=== PATIENT | female | born 1955 | race Caucasian/White ===

== ENCOUNTER 2017-10-09 20:13 | Emergency (ER) | payer MEDICAID, OTHER ==
[~2017-10-09] VITALS: Ht 162.6 cm; Wt 52.0 kg
[2017-10-09] MEDS ORDERED: CEPH500C5 PO (22:34)
[2017-10-09] MEDS ORDERED: SULF1TAB49 PO (22:34)
[2017-10-09] MEDS ORDERED: cephalexin 250mg capsule PO ONE (22:35)
[2017-10-09] MEDS ORDERED: sulfamethoxazole/trimethoprim DS (800/160mg) tablet PO ONE (22:35)
[2017-10-09 22:46] VITALS: BP 113/64
== END 2017-10-09 22:46 | disposition home or self-care (01) ==
LOC: ER 20:14
DX: L03.116 Cellulitis of left lower limb (principal); B35.3 Tinea pedis; G89.29 Other chronic pain; F15.10 Other stimulant abuse, uncomplicated; Z98.890 Other specified postprocedural states; Z86.19 Personal history of other infectious and parasitic diseases; Z59.0 Homelessness
CPT/HCPCS: 99284

== ENCOUNTER 2017-10-13 21:34 | Emergency (ER) | payer MEDICAID ==
[~2017-10-13] VITALS: Ht 162.6 cm; Wt 52.0 kg
[~2017-10-13 21:34] MED LIST: CEPH500C5 PO; SULF1TAB49 PO
[2017-10-13 22:47] VITALS: BP 110/68
[2017-10-13 22:50] LABS: BASOPHILS % (AUTO) 0.7 % (0-1); EOSINOPHILS # (AUTO) 0.2 X10'3 (0-0.9); EOSINOPHILS % (AUTO) 3.6 % (0-6); HEMATOCRIT 30.3 % (35.0-45.0); HEMOGLOBIN 10.2 g/dl (12.0-16.0); LYMPHOCYTES % (AUTO) 39.7 % (21-51); MEAN CORPUSCULAR HEMOGLOBIN 27.8 PG (27.0-31.0); MEAN CORPUSCULAR HGB CONC 33.7 % (33.0-36.5); MEAN CORPUSCULAR VOLUME 82.7 FL (78-98); MEAN PLATELET VOLUME 7.7 FL (7.4-10.4); MONOCYTES # (AUTO) 0.6 X10'3 (0-0.9); MONOCYTES % (AUTO) 12.2 % (2-12); NEUTROPHILS # (AUTO) 2.2 X10'3 (1.8-7.7); NEUTROPHILS % (AUTO) 43.8 % (42-75); PLATELET COUNT 268 X10'3 (140-440); RED BLOOD COUNT 3.66 X10'6 (4.20-5.60); RED CELL DISTRIBUTION WIDTH 27.9 % (11.5-14.5); WHITE BLOOD COUNT 4.9 X10'3 (4.5-11.0)
[2017-10-13 23:09] LABS: ALANINE AMINOTRANSFERASE 40 U/L (12-78); ALBUMIN 3.4 G/DL (3.4-5.0); ALBUMIN/GLOBULIN RATIO 0.8 (1.1-1.5); ALKALINE PHOSPHATASE 82 IU/L (46-116); ANION GAP 8 (8-16); ASPARTATE AMINO TRANSFERASE 31 U/L (10-37); BILIRUBIN,TOTAL 0.2 MG/DL (0.1-1.0); BLOOD UREA NITROGEN 20 MG/DL (7-18); BUN/CREATININE RATIO 15.5 (6.6-38.0); CALCIUM 9.1 MG/DL (8.5-10.1); CHLORIDE 99 MMOL/L (99-107); CREATININE 1.29 MG/DL (0.40-0.90); GLUCOSE 89 MG/DL (70-104); POTASSIUM 4.1 MMOL/L (3.5-5.1); SODIUM 137 MMOL/L (135-145); TOTAL CARBON DIOXIDE 30.2 MMOL/L (24-32); TOTAL PROTEIN 7.9 G/DL (6.4-8.2); TROPONIN I < 0.04 NG/ML (0.0-0.05); eGFR 42 ML/MIN
[2017-10-13] MEDS ORDERED: CLIN300C3 PO (23:20)
[2017-10-13] MEDS ORDERED: METH4TAB81 PO (23:20)
[2017-10-13] MEDS ORDERED: FAMO-128 PO (23:22)
[2017-10-14 00:55] LABS: ANISOCYTOSIS 3+; PLATELET ESTIMATE NORMAL
[2017-10-14 00:57] LABS: ELLIPTOCYTES FEW; HYPOCHROMASIA 1+; POLYCHROMASIA FEW
== END 2017-10-13 23:35 | disposition home or self-care (01) ==
LOC: ER 21:34
DX: L25.9 Unspecified contact dermatitis, unspecified cause (principal); L03.116 Cellulitis of left lower limb; F17.200 Nicotine dependence, unspecified, uncomplicated; F15.10 Other stimulant abuse, uncomplicated; F11.10 Opioid abuse, uncomplicated; Z86.19 Personal history of other infectious and parasitic diseases; Z60.2 Problems related to living alone; Z59.0 Homelessness; Z98.890 Other specified postprocedural states
CPT/HCPCS: 36415; 71045; 80053; 83605; 84484; 85025; 87040; 93005; 99285

== ENCOUNTER 2017-10-22 10:48 | Emergency (ER) | payer MEDICAID ==
[~2017-10-22] VITALS: Ht 162.6 cm; Wt 49.5 kg
[~2017-10-22 10:48] MED LIST changes: +CLIN300C3 PO; +FAMO-128 PO; +METH4TAB81 PO; -SULF1TAB49 PO
[2017-10-22] MEDS ORDERED: ondansetron 4mg rapidly disintigrating tab PO ONE (11:15)
[2017-10-22] MEDS ORDERED: HYDROcodone/acetaminophen 10/325mg tab PO ONE (11:15)
[2017-10-22 11:19] VITALS: BP 147/78
[2017-10-22] MEDS ORDERED: ibuprofen tablet 400 MG TABLET PO ONE (12:30)
[2017-10-22] MEDS ORDERED: ONDA4TAB9 PO (13:58)
== END 2017-10-22 15:00 | disposition home or self-care (01) ==
LOC: ER 10:48
DX: M25.552 Pain in left hip (principal); F11.23 Opioid dependence with withdrawal; G89.29 Other chronic pain; F15.10 Other stimulant abuse, uncomplicated; Z98.890 Other specified postprocedural states; Z79.899 Other long term (current) drug therapy; Z59.0 Homelessness; Z88.1 Allergy status to other antibiotic agents; Z88.8 Allergy status to other drugs, medicaments and biological substances; W19.XXXA Unspecified fall, initial encounter; Y93.89 Activity, other specified; Y92.89 Other specified places as the place of occurrence of the external cause; Y99.9 Unspecified external cause status
CPT/HCPCS: 73502; 99284

== ENCOUNTER 2017-11-15 15:38 | Emergency (ER) | payer MEDICAID ==
[~2017-11-15] VITALS: Ht 165.1 cm; Wt 45.5 kg
[~2017-11-15 15:38] MED LIST changes: -CLIN300C3 PO; +ONDA4TAB9 PO
[2017-11-15] MEDS ORDERED: NAPR-56 PO (15:51)
[2017-11-15] MEDS ORDERED: ONDA4TAB9 PO (15:51)
[2017-11-15] MEDS ORDERED: buprenorphine/naloxone 2-0.5mg sublingual tablet SL SCH (16:30)
[2017-11-15] MEDS ORDERED: buprenorphine/naloxone 2-0.5mg sublingual tablet SL ONE (18:50)
[2017-11-15 19:56] VITALS: BP 109/60
[2017-11-16] MEDS ORDERED: buprenorphine/naloxone 2-0.5mg sublingual tablet SL SCH (08:00)
[2017-11-16] MEDS ORDERED: buprenorphine/naloxone 2-0.5mg sublingual tablet SL ONE (08:00)
[2017-11-16 13:20] LABS: C DIFF ANTIGEN SEE COMMENTS (NEGATIVE); C DIFF SPECIMEN=DIARRHEA? ACCEPTABLE; C DIFF TOXIN (LAMP) NEGATIVE (NEG); C DIFFICILE TOXINS A&B NEGATIVE (Neg)
== END 2017-11-15 19:57 | disposition home or self-care (01) ==
LOC: ER 15:38
DX: M25.552 Pain in left hip (principal); F11.23 Opioid dependence with withdrawal; G89.29 Other chronic pain; F15.10 Other stimulant abuse, uncomplicated; Z86.19 Personal history of other infectious and parasitic diseases; Z60.2 Problems related to living alone; Z98.890 Other specified postprocedural states; Z88.2 Allergy status to sulfonamides; Z88.8 Allergy status to other drugs, medicaments and biological substances; Z79.899 Other long term (current) drug therapy
CPT/HCPCS: 72170; 87324; 87449; 87493; 99285

== ENCOUNTER 2018-01-23 13:40 | Inpatient (IN) | payer MEDICAID ==
[~2018-01-23] VITALS: Ht 162.6 cm; Wt 55.4 kg
[~2018-01-23 13:40] MED LIST changes: -ONDA4TAB9 PO
[2018-01-23] MEDS ORDERED: piperacillin/tazo 3.375gm/50ml 50 ML IV ONE (16:40)
[2018-01-23] MEDS ORDERED: vancomycin/NS 1 GM ADD-VANTAGE 250 ML IV ONE (16:40)
[2018-01-23 20:41] LABS: BASOPHILS % (AUTO) 0.4 % (0-1); EOSINOPHILS # (AUTO) 0.1 X10'3 (0-0.9); EOSINOPHILS % (AUTO) 0.9 % (0-6); HEMATOCRIT 26.1 % (35.0-45.0); HEMOGLOBIN 8.9 g/dl (12.0-16.0); LYMPHOCYTES # (AUTO) 2.7 X10'3 (1.1-4.8); LYMPHOCYTES % (AUTO) 30.6 % (21-51); MEAN CORPUSCULAR HEMOGLOBIN 31.7 PG (27.0-31.0); MEAN CORPUSCULAR HGB CONC 34.2 % (33.0-36.5); MEAN CORPUSCULAR VOLUME 92.8 FL (78-98); MEAN PLATELET VOLUME 7.4 FL (7.4-10.4); MONOCYTES # (AUTO) 1.3 X10'3 (0-0.9); MONOCYTES % (AUTO) 14.3 % (2-12); NEUTROPHILS # (AUTO) 4.8 X10'3 (1.8-7.7); NEUTROPHILS % (AUTO) 53.8 % (42-75); PLATELET COUNT 329 X10'3 (140-440); RED BLOOD COUNT 2.81 X10'6 (4.20-5.60); WHITE BLOOD COUNT 8.9 X10'3 (4.5-11.0)
[2018-01-23 20:55] LABS: ALANINE AMINOTRANSFERASE 58 U/L (12-78); ALBUMIN 2.6 G/DL (3.4-5.0); ALBUMIN/GLOBULIN RATIO 0.7 (1.1-1.5); ALKALINE PHOSPHATASE 58 IU/L (46-116); ANION GAP 7 (8-16); ASPARTATE AMINO TRANSFERASE 46 U/L (10-37); BILIRUBIN,TOTAL 0.4 MG/DL (0.1-1.0); BLOOD UREA NITROGEN 16 MG/DL (7-18); BUN/CREATININE RATIO 14.8 (6.6-38.0); CALCIUM 9.1 MG/DL (8.5-10.1); CHLORIDE 101 MMOL/L (99-107); CREATININE 1.08 MG/DL (0.40-0.90); GLUCOSE 98 MG/DL (70-104); POTASSIUM 3.9 MMOL/L (3.5-5.1); SODIUM 137 MMOL/L (135-145); TOTAL CARBON DIOXIDE 29.3 MMOL/L (24-32); TOTAL PROTEIN 6.4 G/DL (6.4-8.2); eGFR 52 ML/MIN
[2018-01-23] MEDS ORDERED: temazepam 15mg capsule PO PRN (21:00)
[2018-01-23 21:03] LABS: ETHANOL < 0.010 GM/DL (0.0-0.010); MAGNESIUM 1.4 MG/DL (1.5-2.4)
[2018-01-23] MEDS ORDERED: TRAZ-146 PO (21:03)
[2018-01-23] MEDS ORDERED: PHE12.5T PO (21:38)
[2018-01-23] MEDS ORDERED: PARO40TA PO (21:38)
[2018-01-23] MEDS ORDERED: BUPR1FIL5 SL (21:38)
[2018-01-23] MEDS ORDERED: morphine 4 MG/ML inj SYRINge IV STA (21:40)
[2018-01-23] MEDS ORDERED: LORazepam 2 mg/ml vial IV STA (21:40)
[2018-01-23] MEDS ORDERED: ondansetron/PF 4mg/2ml inj IV STA (21:40)
[2018-01-23] MEDS ORDERED: HYDROcodone/acetaminophen 5mg/325mg tablet PO PRN (23:50)
[2018-01-23] MEDS ORDERED: morphine 4 MG/ML inj SYRINge IV PRN ×2 (23:50)
[2018-01-23] MEDS ORDERED: acetaminophen 325mg tablet PO PRN ×2 (23:50)
[2018-01-23] MEDS ORDERED: diphenhydrAMINE 25mg capsule PO PRN (23:50)
[2018-01-23] MEDS ORDERED: diphenhydrAMINE 50 mg/ml inj IV PRN (23:50)
[2018-01-23] MEDS ORDERED: HYDROmorphone inj. 0.5 MG/0.5 ML DISP.SYRIN IV PRN ×2 (23:50)
[2018-01-23] MEDS ORDERED: acetaminophen 650mg rectal suppository RC PRN (23:50)
[2018-01-23] MEDS ORDERED: mag hydrox/Alum hydrox/simeth 30ml oral suspension PO PRN (23:50)
[2018-01-23] MEDS ORDERED: magnesium hydroxide 30ml (MOM) UD suspension PO PRN (23:50)
[2018-01-23] MEDS ORDERED: bisacodyl 10mg suppository rectal RC PRN (23:50)
[2018-01-23] MEDS ORDERED: HYDROcodone/acetaminophen 10/325mg tab PO PRN (23:50)
[2018-01-23] MEDS ORDERED: ondansetron/PF 4mg/2ml inj IV PRN (23:50)
[2018-01-23] MEDS ORDERED: metoclopramide 5 mg/ml inj IV PRN (23:50)
[2018-01-23] MEDS ORDERED: magnesium 1gm/100ml D5W IVPB 100 ML IV PRN (23:55)
[2018-01-23] MEDS ORDERED: magnesium 4gm in 100ml NS 100 ML IV PRN (23:55)
[2018-01-24] MEDS: normal saline 1000ml 1,000 ML IV SCH ×4 (00:36→22:56)
[2018-01-24 00:45] VITALS: BP 101/47
[2018-01-24 05:02] LABS: BASOPHILS # (AUTO) 0.1 X10'3 (0-0.2); BASOPHILS % (AUTO) 1.1 % (0-1); EOSINOPHILS % (AUTO) 0.7 % (0-6); HEMATOCRIT 23.2 % (35.0-45.0); HEMOGLOBIN 7.8 g/dl (12.0-16.0); LYMPHOCYTES # (AUTO) 1.7 X10'3 (1.1-4.8); LYMPHOCYTES % (AUTO) 27.8 % (21-51); MEAN CORPUSCULAR HEMOGLOBIN 31.5 PG (27.0-31.0); MEAN CORPUSCULAR HGB CONC 33.6 % (33.0-36.5); MEAN CORPUSCULAR VOLUME 93.9 FL (78-98); MEAN PLATELET VOLUME 7.8 FL (7.4-10.4); NEUTROPHILS # (AUTO) 3.4 X10'3 (1.8-7.7); NEUTROPHILS % (AUTO) 54.4 % (42-75); PLATELET COUNT 263 X10'3 (140-440); RED BLOOD COUNT 2.47 X10'6 (4.20-5.60); WHITE BLOOD COUNT 6.2 X10'3 (4.5-11.0)
[2018-01-24] MEDS ORDERED: piperacillin/tazo 4.5gm/100ml 100 ML IV SCH (06:00)
[2018-01-24 07:06] VITALS: BP 93/61
[2018-01-24] MEDS: famotidine 20mg tablet PO SCH ×2 (07:38→19:15)
[2018-01-24] MEDS: proMETHazine 25mg tablet PO SCH ×3 (07:38→19:07)
[2018-01-24] MEDS: pantoprazole 40mg Tablet.DR PO SCH (07:39)
[2018-01-24] MEDS: docusate sod 100mg capsule PO SCH ×2 (07:39→19:15)
[2018-01-24] MEDS: PARoxetine 20mg tablet PO SCH (07:39)
[2018-01-24] MEDS: buprenorphine/naloxone 2-0.5mg sublingual tablet SL SCH ×2 (07:51→19:16)
[2018-01-24 07:59] LABS: ALANINE AMINOTRANSFERASE 49 U/L (12-78); ALBUMIN 2.2 G/DL (3.4-5.0); ALBUMIN/GLOBULIN RATIO 0.7 (1.1-1.5); ALKALINE PHOSPHATASE 48 IU/L (46-116); ANION GAP 8 (8-16); ASPARTATE AMINO TRANSFERASE 47 U/L (10-37); BILIRUBIN,TOTAL 0.5 MG/DL (0.1-1.0); BLOOD UREA NITROGEN 13 MG/DL (7-18); BUN/CREATININE RATIO 11.2 (6.6-38.0); CALCIUM 8.4 MG/DL (8.5-10.1); CHLORIDE 105 MMOL/L (99-107); CREATINE KINASE 431 U/L (26-192); CREATININE 1.16 MG/DL (0.40-0.90); GLUCOSE 85 MG/DL (70-104); LIPASE 71 U/L (73-393); MAGNESIUM 1.3 MG/DL (1.5-2.4); PHOSPHORUS 3.7 MG/DL (2.3-4.5); POTASSIUM 3.7 MMOL/L (3.5-5.1); SODIUM 139 MMOL/L (135-145); TOTAL CARBON DIOXIDE 25.7 MMOL/L (24-32); TOTAL PROTEIN 5.5 G/DL (6.4-8.2); eGFR 48 ML/MIN
[2018-01-24] MEDS ORDERED: [UNRECOGNIZED DRUG - OTHER] SL SCH (08:00)
[2018-01-24] MEDS ORDERED: NALOXONE SL SCH (08:00)
[2018-01-24] MEDS ORDERED: BUPRENORPHINE SL SCH (08:00)
[2018-01-24] MEDS: cefepime 1GM/NS ADD-VANTAGE 100 ML IV SCH ×3 (08:38→23:29)
[2018-01-24] MEDS ORDERED: vancomycin/NS 1 GM ADD-VANTAGE 250 ML IV SCH (09:00)
[2018-01-24 10:37] LABS: URINE AMPHETAMINE SCREEN NEGATIVE (Neg); URINE BARBITUATE SCREEN NEGATIVE (Neg); URINE BENZODIAZEPINES SCREEN NEGATIVE (Neg); URINE CANNABINOID SCREEN NEGATIVE (Neg); URINE COCAINE SCREEN NEGATIVE (Neg); URINE METHADONE SCREEN NEGATIVE (Neg); URINE OPIATE SCREEN POSITIVE (Neg); URINE PHENCYCLIDINE SCREEN NEGATIVE (Neg)
[2018-01-24 11:44] VITALS: BP 90/52
[2018-01-24] MEDS: magnesium Cl slow-release 64mg tablet PO PRN ×2 (13:24→23:27)
[2018-01-24 19:00] VITALS: BP 115/58
[2018-01-24] MEDS: lactobacillus rhamnosus 10,000 MMU CELLS/CAPSULE PO SCH (19:15)
[2018-01-24] MEDS: traZODone 50mg tablet PO SCH (21:00)
[2018-01-24 23:00] VITALS: BP 115/53
[2018-01-24 23:40] VITALS: BP 102/49
[2018-01-25] MEDS: methylPREDNISolone sod succ 125mg/2ml vial IV SCH ×3 (00:35→19:21)
[2018-01-25] MEDS: proMETHazine 25mg tablet PO SCH ×4 (02:00→19:21)
[2018-01-25] MEDS: ipratropium/albuterol 3ml nebule NEB PRN (02:29)
[2018-01-25 02:30] VITALS: BP 118/58
[2018-01-25 03:45] LABS: BASOPHILS % (AUTO) 0.3 % (0-1); EOSINOPHILS # (AUTO) 0.1 X10'3 (0-0.9); EOSINOPHILS % (AUTO) 1.6 % (0-6); HEMATOCRIT 24.3 % (35.0-45.0); HEMOGLOBIN 8.1 g/dl (12.0-16.0); LYMPHOCYTES # (AUTO) 0.7 X10'3 (1.1-4.8); LYMPHOCYTES % (AUTO) 10.8 % (21-51); MEAN CORPUSCULAR HEMOGLOBIN 31.5 PG (27.0-31.0); MEAN CORPUSCULAR HGB CONC 33.3 % (33.0-36.5); MEAN CORPUSCULAR VOLUME 94.8 FL (78-98); MEAN PLATELET VOLUME 7.3 FL (7.4-10.4); MONOCYTES # (AUTO) 0.3 X10'3 (0-0.9); MONOCYTES % (AUTO) 3.9 % (2-12); NEUTROPHILS # (AUTO) 5.4 X10'3 (1.8-7.7); NEUTROPHILS % (AUTO) 83.4 % (42-75); PLATELET COUNT 272 X10'3 (140-440); RED BLOOD COUNT 2.56 X10'6 (4.20-5.60); RED CELL DISTRIBUTION WIDTH 16.9 % (11.5-14.5); WHITE BLOOD COUNT 6.5 X10'3 (4.5-11.0)
[2018-01-25 04:16] LABS: ALANINE AMINOTRANSFERASE 56 U/L (12-78); ALBUMIN 2.3 G/DL (3.4-5.0); ALBUMIN/GLOBULIN RATIO 0.6 (1.1-1.5); ALKALINE PHOSPHATASE 50 IU/L (46-116); ANION GAP 9 (8-16); ASPARTATE AMINO TRANSFERASE 56 U/L (10-37); BILIRUBIN,TOTAL 0.4 MG/DL (0.1-1.0); BLOOD UREA NITROGEN 15 MG/DL (7-18); BUN/CREATININE RATIO 16.5 (6.6-38.0); CALCIUM 7.8 MG/DL (8.5-10.1); CHLORIDE 108 MMOL/L (99-107); CREATININE 0.91 MG/DL (0.40-0.90); GLUCOSE 109 MG/DL (70-104); POTASSIUM 3.6 MMOL/L (3.5-5.1); SODIUM 141 MMOL/L (135-145); TOTAL CARBON DIOXIDE 24.4 MMOL/L (24-32); eGFR 63 ML/MIN
[2018-01-25 04:40] VITALS: BP 117/61
[2018-01-25] MEDS ORDERED: normal saline 1000ml 1,000 ML IV SCH ×2 (04:50→11:50)
[2018-01-25 07:00] VITALS: BP 115/57
[2018-01-25] MEDS: cefepime 1GM/NS ADD-VANTAGE 100 ML IV SCH ×2 (08:26→15:30)
[2018-01-25] MEDS: lactobacillus rhamnosus 10,000 MMU CELLS/CAPSULE PO SCH ×2 (08:27→19:20)
[2018-01-25] MEDS: famotidine 20mg tablet PO SCH ×2 (08:27→19:21)
[2018-01-25] MEDS: pantoprazole 40mg Tablet.DR PO SCH (08:27)
[2018-01-25] MEDS: PARoxetine 20mg tablet PO SCH (08:27)
[2018-01-25] MEDS: docusate sod 100mg capsule PO SCH ×2 (08:27→19:20)
[2018-01-25] MEDS: buprenorphine/naloxone 2-0.5mg sublingual tablet SL SCH ×2 (08:28→19:20)
[2018-01-25] MEDS ORDERED: furosemide 20 MG/2 ML vial IV ONE (10:15)
[2018-01-25] MEDS ORDERED: heparin sodium, porcine/PF 100unit/ml 5ML syringe IV SCH (10:30)
[2018-01-25] MEDS ORDERED: sod chloride 0.9% 10ml flush syringe IV SCH (10:30)
[2018-01-25] MEDS: vancomycin/NS 1 GM ADD-VANTAGE 250 ML IV SCH (10:56)
[2018-01-25 20:00] VITALS: BP 117/65
[2018-01-25] MEDS: traZODone 50mg tablet PO SCH (21:00)
[2018-01-26] VITALS: BP 119/60
[2018-01-26] MEDS: cefepime 1GM/NS ADD-VANTAGE 100 ML IV SCH ×4 (00:39→23:52)
[2018-01-26] MEDS: proMETHazine 25mg tablet PO SCH ×4 (02:00→21:10)
[2018-01-26 03:30] VITALS: BP 113/68
[2018-01-26] MEDS: ipratropium/albuterol 3ml nebule NEB PRN ×2 (03:49→21:46)
[2018-01-26] MEDS ORDERED: furosemide 20 MG/2 ML vial IV ONE (04:25)
[2018-01-26 05:49] LABS: BASOPHILS % (AUTO) 0.1 % (0-1); EOSINOPHILS # (AUTO) 0.1 X10'3 (0-0.9); EOSINOPHILS % (AUTO) 0.7 % (0-6); HEMATOCRIT 22.9 % (35.0-45.0); HEMOGLOBIN 7.6 g/dl (12.0-16.0); LYMPHOCYTES # (AUTO) 1.1 X10'3 (1.1-4.8); LYMPHOCYTES % (AUTO) 6.8 % (21-51); MEAN CORPUSCULAR HEMOGLOBIN 31.2 PG (27.0-31.0); MEAN CORPUSCULAR HGB CONC 33.2 % (33.0-36.5); MEAN CORPUSCULAR VOLUME 93.9 FL (78-98); MEAN PLATELET VOLUME 7.9 FL (7.4-10.4); MONOCYTES # (AUTO) 0.9 X10'3 (0-0.9); MONOCYTES % (AUTO) 5.5 % (2-12); NEUTROPHILS # (AUTO) 14.1 X10'3 (1.8-7.7); NEUTROPHILS % (AUTO) 86.9 % (42-75); PLATELET COUNT 275 X10'3 (140-440); RED BLOOD COUNT 2.44 X10'6 (4.20-5.60); RED CELL DISTRIBUTION WIDTH 16.8 % (11.5-14.5); WHITE BLOOD COUNT 16.2 X10'3 (4.5-11.0)
[2018-01-26 06:23] LABS: ALANINE AMINOTRANSFERASE 44 U/L (12-78); ALBUMIN 2.3 G/DL (3.4-5.0); ALBUMIN/GLOBULIN RATIO 0.6 (1.1-1.5); ALKALINE PHOSPHATASE 43 IU/L (46-116); ANION GAP 5 (8-16); ASPARTATE AMINO TRANSFERASE 30 U/L (10-37); BILIRUBIN,TOTAL 0.2 MG/DL (0.1-1.0); BLOOD UREA NITROGEN 26 MG/DL (7-18); BUN/CREATININE RATIO 22.4 (6.6-38.0); CALCIUM 7.7 MG/DL (8.5-10.1); CHLORIDE 107 MMOL/L (99-107); CREATININE 1.16 MG/DL (0.40-0.90); GLUCOSE 158 MG/DL (70-104); POTASSIUM 3.1 MMOL/L (3.5-5.1); SODIUM 138 MMOL/L (135-145); eGFR 48 ML/MIN
[2018-01-26 07:00] VITALS: BP 115/54
[2018-01-26] MEDS: pantoprazole 40mg Tablet.DR PO SCH (07:20)
[2018-01-26] MEDS: PARoxetine 20mg tablet PO SCH (07:20)
[2018-01-26] MEDS: lactobacillus rhamnosus 10,000 MMU CELLS/CAPSULE PO SCH ×2 (07:27→21:09)
[2018-01-26] MEDS: buprenorphine/naloxone 2-0.5mg sublingual tablet SL SCH ×2 (07:27→21:12)
[2018-01-26] MEDS: docusate sod 100mg capsule PO SCH ×2 (07:27→21:10)
[2018-01-26] MEDS: famotidine 20mg tablet PO SCH ×2 (07:27→21:11)
[2018-01-26] MEDS: methylPREDNISolone sod succ 125mg/2ml vial IV SCH (07:29)
[2018-01-26 11:00] VITALS: BP 131/73
[2018-01-26] MEDS: vancomycin/NS 1 GM ADD-VANTAGE 250 ML IV SCH (11:54)
[2018-01-26] MEDS ORDERED: potassium Cl 20 mEq SR tablet PO PRN ×3 (16:00→16:10)
[2018-01-26] MEDS ORDERED: magnesium 4gm in 100ml NS 100 ML IV PRN ×2 (16:00→16:10)
[2018-01-26] MEDS ORDERED: magnesium Cl slow-release 64mg tablet PO PRN ×2 (16:00→16:10)
[2018-01-26] MEDS ORDERED: potassium Cl 40MEQ/NS 500ml 500 ML IV PRN ×4 (16:00→16:10)
[2018-01-26] MEDS ORDERED: magnesium 1gm/100ml D5W IVPB 100 ML IV PRN (16:10)
[2018-01-26] MEDS: potassium Cl 20 mEq SR tablet PO PRN ×2 (16:33→22:40)
[2018-01-26 20:00] VITALS: BP 127/68
[2018-01-26] MEDS: traZODone 50mg tablet PO SCH (21:11)
[2018-01-27] VITALS: BP 99/60
[2018-01-27] MEDS: proMETHazine 25mg tablet PO SCH ×4 (02:00→20:16)
[2018-01-27] MEDS: potassium Cl 20 mEq SR tablet PO PRN (03:04)
[2018-01-27] MEDS ORDERED: albuterol 2.5 MG/3 ML nebule NEB STA (05:13)
[2018-01-27 05:25] LABS: ABG BASE EXCESS 0.8 mmol/L (-2.0-3.0); ABG HCO3 25.4 mmol/L (22.0-26.0); ABG OXYGEN SATURATION 90.4 % (95-98); ABG PCO2 (T) 39.2 mmHg (32.0-45.0); ABG PH (T) 7.426 (7.350-7.450); ABG PO2 (T) 61.1 mmHg (83-108); ALLEN'S TEST Positive; FCOHb 0.3 % (0.5-1.5); FLOW 15 L/min; FMetHb 0.3 % (0.3-1.12); FO2Hb 89.9 % (94-100); PATIENT TEMPERATURE 36.5; TOTAL HEMOGLOBIN 8.6 G/dl (12.0-16.0)
[2018-01-27] MEDS: ipratropium/albuterol 3ml nebule NEB PRN (05:27)
[2018-01-27 05:32] LABS: BASOPHILS # (AUTO) 0.1 X10'3 (0-0.2); BASOPHILS % (AUTO) 0.4 % (0-1); EOSINOPHILS % (AUTO) 0 % (0-6); HEMATOCRIT 23.9 % (35.0-45.0); LYMPHOCYTES % (AUTO) 12.9 % (21-51); MEAN CORPUSCULAR HEMOGLOBIN 31.3 PG (27.0-31.0); MEAN CORPUSCULAR HGB CONC 33.7 % (33.0-36.5); MEAN CORPUSCULAR VOLUME 93.2 FL (78-98); MEAN PLATELET VOLUME 7.3 FL (7.4-10.4); MONOCYTES # (AUTO) 0.8 X10'3 (0-0.9); MONOCYTES % (AUTO) 5.6 % (2-12); NEUTROPHILS # (AUTO) 12.4 X10'3 (1.8-7.7); NEUTROPHILS % (AUTO) 81.1 % (42-75); PLATELET COUNT 326 X10'3 (140-440); RED BLOOD COUNT 2.56 X10'6 (4.20-5.60); RED CELL DISTRIBUTION WIDTH 17.5 % (11.5-14.5); WHITE BLOOD COUNT 15.3 X10'3 (4.5-11.0)
[2018-01-27] MEDS ORDERED: furosemide 40mg/4ml inj IV ONE (05:35)
[2018-01-27] MEDS ORDERED: furosemide 40mg/4ml inj ONE (05:36)
[2018-01-27 05:49] LABS: ALANINE AMINOTRANSFERASE 45 U/L (12-78); ALBUMIN 2.3 G/DL (3.4-5.0); ALBUMIN/GLOBULIN RATIO 0.6 (1.1-1.5); ALKALINE PHOSPHATASE 47 IU/L (46-116); ANION GAP 7 (8-16); ASPARTATE AMINO TRANSFERASE 25 U/L (10-37); BILIRUBIN,TOTAL 0.2 MG/DL (0.1-1.0); BLOOD UREA NITROGEN 32 MG/DL (7-18); BUN/CREATININE RATIO 28.8 (6.6-38.0); CALCIUM 7.9 MG/DL (8.5-10.1); CHLORIDE 111 MMOL/L (99-107); CREATININE 1.11 MG/DL (0.40-0.90); GLUCOSE 91 MG/DL (70-104); POTASSIUM 3.7 MMOL/L (3.5-5.1); SODIUM 146 MMOL/L (135-145); TOTAL PROTEIN 6.3 G/DL (6.4-8.2); eGFR 50 ML/MIN
[2018-01-27 05:50] LABS: MAGNESIUM 1.7 MG/DL (1.5-2.4); TROPONIN I 0.07 NG/ML (0.0-0.05)
[2018-01-27] MEDS: docusate sod 100mg capsule PO SCH ×2 (08:54→20:16)
[2018-01-27] MEDS: lactobacillus rhamnosus 10,000 MMU CELLS/CAPSULE PO SCH ×2 (08:54→20:16)
[2018-01-27] MEDS: famotidine 20mg tablet PO SCH ×2 (08:55→20:16)
[2018-01-27] MEDS: buprenorphine/naloxone 2-0.5mg sublingual tablet SL SCH ×2 (08:55→20:15)
[2018-01-27] MEDS: PARoxetine 20mg tablet PO SCH (08:55)
[2018-01-27] MEDS: pantoprazole 40mg Tablet.DR PO SCH (08:59)
[2018-01-27 09:02] VITALS: BP 97/54
[2018-01-27] MEDS ORDERED: VANCOMYCIN LEVEL IV ONE (09:30)
[2018-01-27 10:00] VITALS: BP 105/63
[2018-01-27] MEDS ORDERED: cefpodoxime proxetil 100mg tablet PO SCH (10:10)
[2018-01-27] MEDS ORDERED: furosemide 10 MG/1 ML 10ml inj IV ONE (10:25)
[2018-01-27] MEDS ORDERED: iohexol 350MG/ML 100ml bottle IV ONE (10:31)
[2018-01-27 10:45] LABS: ABG BASE EXCESS 4.3 mmol/L (-2.0-3.0); ABG OXYGEN SATURATION 85.2 % (95-98); ABG PCO2 (T) 38.3 mmHg (32.0-45.0); ABG PH (T) 7.482 (7.350-7.450); ABG PO2 (T) 48.7 mmHg (83-108); ALLEN'S TEST Positive; FCOHb 0.6 % (0.5-1.5); FMetHb 0.3 % (0.3-1.12); FO2Hb 84.4 % (94-100); TOTAL HEMOGLOBIN 8.7 G/dl (12.0-16.0)
[2018-01-27] MEDS: azithromycin 250mg tablet PO SCH (12:29)
[2018-01-27] MEDS: piperacillin/tazo 3.375gm/50ml 50 ML IV SCH ×3 (12:29→20:14)
[2018-01-27 20:00] VITALS: BP 148/84
[2018-01-27] MEDS: furosemide 40mg/4ml inj IV SCH (20:14)
[2018-01-27] MEDS: traZODone 50mg tablet PO SCH (21:00)
[2018-01-28] VITALS: BP 107/71
[2018-01-28] MEDS: proMETHazine 25mg tablet PO SCH ×4 (02:00→20:00)
[2018-01-28] MEDS: piperacillin/tazo 3.375gm/50ml 50 ML IV SCH ×4 (02:09→20:21)
[2018-01-28 05:29] LABS: BASOPHILS % (AUTO) 0.1 % (0-1); EOSINOPHILS # (AUTO) 0.1 X10'3 (0-0.9); EOSINOPHILS % (AUTO) 0.4 % (0-6); HEMATOCRIT 28.8 % (35.0-45.0); HEMOGLOBIN 9.8 g/dl (12.0-16.0); LYMPHOCYTES # (AUTO) 1.7 X10'3 (1.1-4.8); LYMPHOCYTES % (AUTO) 11.3 % (21-51); MEAN CORPUSCULAR HEMOGLOBIN 31.5 PG (27.0-31.0); MEAN CORPUSCULAR HGB CONC 33.9 % (33.0-36.5); MEAN CORPUSCULAR VOLUME 92.8 FL (78-98); MEAN PLATELET VOLUME 7.7 FL (7.4-10.4); NEUTROPHILS % (AUTO) 81.2 % (42-75); PLATELET COUNT 324 X10'3 (140-440); RED CELL DISTRIBUTION WIDTH 16.9 % (11.5-14.5); WHITE BLOOD COUNT 14.8 X10'3 (4.5-11.0)
[2018-01-28 06:29] LABS: ALANINE AMINOTRANSFERASE 36 U/L (12-78); ALBUMIN 2.5 G/DL (3.4-5.0); ALBUMIN/GLOBULIN RATIO 0.5 (1.1-1.5); ALKALINE PHOSPHATASE 58 IU/L (46-116); ANION GAP 5 (8-16); ASPARTATE AMINO TRANSFERASE 22 U/L (10-37); BILIRUBIN,TOTAL 0.7 MG/DL (0.1-1.0); BLOOD UREA NITROGEN 23 MG/DL (7-18); BUN/CREATININE RATIO 21.7 (6.6-38.0); CALCIUM 8.3 MG/DL (8.5-10.1); CHLORIDE 98 MMOL/L (99-107); CREATININE 1.06 MG/DL (0.40-0.90); FERRITIN 71 NG/ML (8-252); GLUCOSE 104 MG/DL (70-104); MAGNESIUM 1.5 MG/DL (1.5-2.4); POTASSIUM 3.2 MMOL/L (3.5-5.1); SODIUM 141 MMOL/L (135-145); TOTAL CARBON DIOXIDE 38.5 MMOL/L (24-32); TOTAL PROTEIN 7.1 G/DL (6.4-8.2); eGFR 53 ML/MIN
[2018-01-28 06:33] LABS: % IRON SATURATION 3 % (11-46); IRON 11 UG/DL (49-151); TOTAL IRON BINDING CAPACITY 365 UG/DL (259-388)
[2018-01-28] MEDS: azithromycin 250mg tablet PO SCH (07:42)
[2018-01-28] MEDS: famotidine 20mg tablet PO SCH ×2 (07:42→20:21)
[2018-01-28] MEDS: pantoprazole 40mg Tablet.DR PO SCH (07:42)
[2018-01-28] MEDS: docusate sod 100mg capsule PO SCH ×2 (07:42→20:00)
[2018-01-28] MEDS: buprenorphine/naloxone 2-0.5mg sublingual tablet SL SCH ×2 (07:42→20:21)
[2018-01-28] MEDS: lactobacillus rhamnosus 10,000 MMU CELLS/CAPSULE PO SCH ×2 (07:42→20:21)
[2018-01-28] MEDS: PARoxetine 20mg tablet PO SCH (07:42)
[2018-01-28] MEDS: furosemide 40mg/4ml inj IV SCH (07:43)
[2018-01-28 07:59] VITALS: BP 122/77
[2018-01-28 12:33] VITALS: BP 98/66
[2018-01-28] MEDS: potassium Cl 20 mEq SR tablet PO PRN (13:03)
[2018-01-28 14:15] LABS: OCCULT BLOOD STOOL NEGATIVE (Neg)
[2018-01-28 20:11] VITALS: BP 112/71
[2018-01-28] MEDS: furosemide 20 MG/2 ML vial IV SCH (20:20)
[2018-01-28] MEDS: traZODone 50mg tablet PO SCH (21:00)
[2018-01-29 00:30] VITALS: BP 98/61
[2018-01-29] MEDS: proMETHazine 25mg tablet PO SCH ×3 (02:35→13:55)
[2018-01-29] MEDS: piperacillin/tazo 3.375gm/50ml 50 ML IV SCH ×3 (02:35→13:49)
[2018-01-29 07:25] LABS: MAGNESIUM 1.6 MG/DL (1.5-2.4)
[2018-01-29 07:27] LABS: POTASSIUM 3.2 MMOL/L (3.5-5.1)
[2018-01-29] MEDS: furosemide 20 MG/2 ML vial IV SCH (07:51)
[2018-01-29] MEDS: pantoprazole 40mg Tablet.DR PO SCH (07:51)
[2018-01-29] MEDS: lactobacillus rhamnosus 10,000 MMU CELLS/CAPSULE PO SCH (07:51)
[2018-01-29] MEDS: docusate sod 100mg capsule PO SCH (07:51)
[2018-01-29] MEDS: PARoxetine 20mg tablet PO SCH (07:52)
[2018-01-29] MEDS: azithromycin 250mg tablet PO SCH (07:53)
[2018-01-29] MEDS: famotidine 20mg tablet PO SCH (07:53)
[2018-01-29] MEDS: buprenorphine/naloxone 2-0.5mg sublingual tablet SL SCH (07:54)
[2018-01-29 08:00] VITALS: BP 109/64
[2018-01-29 11:50] VITALS: BP 92/57
[2018-01-29] MEDS: potassium Cl 20 mEq SR tablet PO PRN (13:48)
[2018-01-29] MEDS ORDERED: LEVO250T2 PO (15:35)
[2018-01-29] MEDS ORDERED: potassium Cl 20 mEq SR tablet PO STA (15:44)
== END 2018-01-29 18:10 | disposition home or self-care (01) | DRG 720 ==
LOC: ER 13:41 → ED HOLD 23:46 → SUR 3N 01-24 01:10
PROVIDERS: ADMIT Family Medicine; ATTEND Internal Medicine
PROC: 02HV33Z Insertion of Infusion Device into Superior Vena Cava, Percutaneous Approach (ICD-10-PCS; principal; 2018-01-23)
PROC: B548ZZA Ultrasonography of Superior Vena Cava, Guidance (ICD-10-PCS; 2018-01-23)
PROC: B32T1ZZ Computerized Tomography (CT Scan) of Left Pulmonary Artery using Low Osmolar Contrast (ICD-10-PCS; 2018-01-27)
PROC: B3201ZZ Computerized Tomography (CT Scan) of Thoracic Aorta using Low Osmolar Contrast (ICD-10-PCS; 2018-01-27)
PROC: B32S1ZZ Computerized Tomography (CT Scan) of Right Pulmonary Artery using Low Osmolar Contrast (ICD-10-PCS; 2018-01-27)
DX: A41.9 Sepsis, unspecified organism (principal); J96.91 Respiratory failure, unspecified with hypoxia; J90 Pleural effusion, not elsewhere classified; J18.9 Pneumonia, unspecified organism; E86.1 Hypovolemia; J44.0 Chronic obstructive pulmonary disease with (acute) lower respiratory infection; F11.20 Opioid dependence, uncomplicated; E83.42 Hypomagnesemia; B18.2 Chronic viral hepatitis C; D64.9 Anemia, unspecified; E87.6 Hypokalemia; N18.9 Chronic kidney disease, unspecified; Z60.2 Problems related to living alone; F15.90 Other stimulant use, unspecified, uncomplicated; G89.29 Other chronic pain; L03.115 Cellulitis of right lower limb; L03.116 Cellulitis of left lower limb; Z79.899 Other long term (current) drug therapy; Z88.2 Allergy status to sulfonamides; Z88.8 Allergy status to other drugs, medicaments and biological substances
CPT/HCPCS: 36415; 36556; 36600; 71045; 71275; 80053; 80305; 80320; 82272; 82550; 82728; 82803; 83540; 83550; 83605; 83690; 83735; 83880; 84100; 84132; 84145; 84484; 85018; 85025; 87040; 87070; 93005; 93306; 93970; 94640; 94760; 99285; A4315; A6258; A6402; C1751; J0692; J1642; J1940; J2060; J2270; J2405; J2543; J2930; J3370; J7030; Q0169; Q9967

== ENCOUNTER 2018-02-09 14:21 | Emergency (ER) | payer MEDICAID ==
[~2018-02-09] VITALS: Ht 172.7 cm; Wt 53.6 kg
[~2018-02-09 14:21] MED LIST changes: +BUPR1FIL5 SL; -CEPH500C5 PO; -METH4TAB81 PO; +PARO40TA PO; +PHE12.5T PO; +TRAZ-219 PO
[2018-02-09 15:18] LABS: BASOPHILS # (AUTO) 0.1 X10'3 (0-0.2); BASOPHILS % (AUTO) 1.3 % (0-1); EOSINOPHILS # (AUTO) 0.3 X10'3 (0-0.9); HEMATOCRIT 25.5 % (35.0-45.0); HEMOGLOBIN 8.4 g/dl (12.0-16.0); LYMPHOCYTES # (AUTO) 1.9 X10'3 (1.1-4.8); LYMPHOCYTES % (AUTO) 36.9 % (21-51); MEAN CORPUSCULAR HEMOGLOBIN 30.2 PG (27.0-31.0); MEAN CORPUSCULAR HGB CONC 32.7 % (33.0-36.5); MEAN CORPUSCULAR VOLUME 92.5 FL (78-98); MEAN PLATELET VOLUME 7.4 FL (7.4-10.4); MONOCYTES # (AUTO) 0.7 X10'3 (0-0.9); MONOCYTES % (AUTO) 14.4 % (2-12); NEUTROPHILS # (AUTO) 2.1 X10'3 (1.8-7.7); NEUTROPHILS % (AUTO) 42.4 % (42-75); PLATELET COUNT 359 X10'3 (140-440); RED BLOOD COUNT 2.76 X10'6 (4.20-5.60); RED CELL DISTRIBUTION WIDTH 16.5 % (11.5-14.5)
[2018-02-09 15:32] LABS: ALANINE AMINOTRANSFERASE 32 U/L (12-78); ALBUMIN 2.5 G/DL (3.4-5.0); ALBUMIN/GLOBULIN RATIO 0.6 (1.1-1.5); ALKALINE PHOSPHATASE 66 IU/L (46-116); ANION GAP 7 (8-16); ASPARTATE AMINO TRANSFERASE 41 U/L (10-37); BILIRUBIN,TOTAL 0.2 MG/DL (0.1-1.0); BLOOD UREA NITROGEN 13 MG/DL (7-18); BUN/CREATININE RATIO 13.3 (6.6-38.0); CALCIUM 8.2 MG/DL (8.5-10.1); CHLORIDE 105 MMOL/L (99-107); CREATININE 0.98 MG/DL (0.40-0.90); GLUCOSE 98 MG/DL (70-104); POTASSIUM 3.8 MMOL/L (3.5-5.1); SODIUM 138 MMOL/L (135-145); TOTAL CARBON DIOXIDE 26.3 MMOL/L (24-32); TOTAL PROTEIN 6.7 G/DL (6.4-8.2); eGFR 58 ML/MIN
[2018-02-09 15:59] LABS: CLARITY,URINE CLEAR (Clear); COLOR,URINE YELLOW (Yellow); GLUCOSE, URINE NEGATIVE (Neg); KETONES,URINE TRACE mg/dl (Neg); LEUKOCYTE ESTERASE ,URINE NEGATIVE (Neg); NITRITES, URINE NEGATIVE (Neg); OCCULT BLOOD,URINE NEGATIVE (Neg); PH,URINE 5.5 (4.8-8.0); PROTEIN,URINE TRACE mg/dl (Neg); UROBILINOGEN,URINE 0.2 E.U/dL (0.2-1.0)
[2018-02-09 16:03] LABS: UA COLLECTION TYPE CLN CATCH MIDSTREAM
[2018-02-09 16:09] LABS: WBC,URINE NONE SEEN /HPF (0-4)
[2018-02-09 16:10] LABS: BACTERIA,URINE NONE SEEN /HPF (Neg); HYALINE CASTS 0-3 /LPF (NEGATIVE); RBC,URINE NONE SEEN /HPF (0-2); SQUAMOUS EPITHELIAL CELL,UR FEW /LPF (FEW)
[2018-02-09] MEDS ORDERED: levoFLOXACIN 250mg tablet PO ONE (16:20)
[2018-02-09] MEDS ORDERED: LEVO500T89 PO (16:24)
[2018-02-09 16:57] VITALS: BP 126/76
== END 2018-02-09 16:55 | disposition home or self-care (01) ==
LOC: ER 14:22
DX: L03.115 Cellulitis of right lower limb (principal); L03.116 Cellulitis of left lower limb; R60.0 Localized edema; F15.90 Other stimulant use, unspecified, uncomplicated; F11.90 Opioid use, unspecified, uncomplicated; G89.29 Other chronic pain; Z88.2 Allergy status to sulfonamides; Z88.1 Allergy status to other antibiotic agents; Z79.899 Other long term (current) drug therapy; Z60.2 Problems related to living alone
CPT/HCPCS: 36415; 80053; 81001; 85025; 99284

== ENCOUNTER 2018-03-27 12:32 | Emergency (ER) | payer MEDICAID ==
[~2018-03-27] VITALS: Ht 162.6 cm; Wt 45.5 kg
[2018-03-27 12:42] VITALS: BP 116/66
[2018-03-27 14:33] LABS: BASOPHILS % (AUTO) 0.6 % (0-1); EOSINOPHILS # (AUTO) 0.1 X10'3 (0-0.9); EOSINOPHILS % (AUTO) 1.4 % (0-6); HEMATOCRIT 39.3 % (35.0-45.0); HEMOGLOBIN 12.8 g/dl (12.0-16.0); LYMPHOCYTES # (AUTO) 2.1 X10'3 (1.1-4.8); MEAN CORPUSCULAR HEMOGLOBIN 29.2 PG (27.0-31.0); MEAN CORPUSCULAR HGB CONC 32.7 % (33.0-36.5); MEAN CORPUSCULAR VOLUME 89.4 FL (78-98); MEAN PLATELET VOLUME 8.6 FL (7.4-10.4); MONOCYTES # (AUTO) 0.4 X10'3 (0-0.9); MONOCYTES % (AUTO) 8.6 % (2-12); NEUTROPHILS # (AUTO) 2.1 X10'3 (1.8-7.7); NEUTROPHILS % (AUTO) 45.4 % (42-75); PLATELET COUNT 227 X10'3 (140-440); RED BLOOD COUNT 4.39 X10'6 (4.20-5.60); RED CELL DISTRIBUTION WIDTH 17.5 % (11.5-14.5); WHITE BLOOD COUNT 4.7 X10'3 (4.5-11.0)
[2018-03-27 14:48] LABS: ALANINE AMINOTRANSFERASE 63 U/L (12-78); ALBUMIN 3.8 G/DL (3.4-5.0); ALBUMIN/GLOBULIN RATIO 0.9 (1.1-1.5); ALKALINE PHOSPHATASE 98 IU/L (46-116); ANION GAP 10 (8-16); ASPARTATE AMINO TRANSFERASE 62 U/L (10-37); BILIRUBIN,TOTAL 0.3 MG/DL (0.1-1.0); BLOOD UREA NITROGEN 18 MG/DL (7-18); BUN/CREATININE RATIO 19.6 (6.6-38.0); CALCIUM 8.9 MG/DL (8.5-10.1); CHLORIDE 100 MMOL/L (99-107); CREATININE 0.92 MG/DL (0.40-0.90); GLUCOSE 91 MG/DL (70-104); POTASSIUM 4.2 MMOL/L (3.5-5.1); SODIUM 137 MMOL/L (135-145); TOTAL PROTEIN 8.1 G/DL (6.4-8.2); eGFR 62 ML/MIN
[2018-03-27] MEDS ORDERED: DIPH25CA83 PO (15:15)
== END 2018-03-27 15:25 | disposition home or self-care (01) ==
LOC: ER 12:32
DX: L29.9 Pruritus, unspecified (principal); R21 Rash and other nonspecific skin eruption; G89.29 Other chronic pain; F15.90 Other stimulant use, unspecified, uncomplicated; F11.90 Opioid use, unspecified, uncomplicated; Z88.2 Allergy status to sulfonamides; Z88.1 Allergy status to other antibiotic agents; Z79.899 Other long term (current) drug therapy; Z60.2 Problems related to living alone
CPT/HCPCS: 36415; 80053; 85025; 99284

== ENCOUNTER 2018-09-25 20:15 | Emergency (ER) | payer MEDICAID ==
[~2018-09-25] VITALS: Ht 162.6 cm; Wt 57.2 kg
[~2018-09-25 20:15] MED LIST changes: +DIPH25CA83 PO
[2018-09-25 20:23] VITALS: BP 138/78
[2018-09-25] MEDS ORDERED: acetaminophen 325mg tablet PO ONE (21:00)
[2018-09-25] MEDS ORDERED: ACET-2615 PO (21:30)
[2018-09-25] MEDS ORDERED: LIDO700A32 TOP (21:30)
== END 2018-09-25 21:51 | disposition home or self-care (01) ==
LOC: ER 20:16
DX: M79.652 Pain in left thigh (principal); G89.29 Other chronic pain; F15.90 Other stimulant use, unspecified, uncomplicated; F11.90 Opioid use, unspecified, uncomplicated; Z88.1 Allergy status to other antibiotic agents; Z88.2 Allergy status to sulfonamides; Z98.890 Other specified postprocedural states
CPT/HCPCS: 73552; 99283

== ENCOUNTER 2019-01-15 11:17 | Emergency (ER) | payer MEDICAID ==
[~2019-01-15] VITALS: Ht 162.6 cm; Wt 64.5 kg
[~2019-01-15 11:17] MED LIST changes: -DIPH25CA83 PO; -FAMO-128 PO; +IBUP-1984 PO; +OMEP40CA37 PO; -PHE12.5T PO; +PROM12.512 PO
[2019-01-15] MEDS ORDERED: ketorolac trometh. 30mg/ml inj. IV ONE (13:00)
[2019-01-15 13:31] LABS: BASOPHILS % (AUTO) 0.6 % (0-1); EOSINOPHILS # (AUTO) 0.2 X10'3 (0-0.9); EOSINOPHILS % (AUTO) 2.6 % (0-6); HEMATOCRIT 41.1 % (35.0-45.0); HEMOGLOBIN 13.6 g/dl (12.0-16.0); LYMPHOCYTES # (AUTO) 2.4 X10'3 (1.1-4.8); LYMPHOCYTES % (AUTO) 39.9 % (21-51); MEAN CORPUSCULAR HEMOGLOBIN 33.6 PG (27.0-31.0); MEAN CORPUSCULAR HGB CONC 33.1 g/dL (33.0-36.5); MEAN CORPUSCULAR VOLUME 101.6 FL (78-98); MEAN PLATELET VOLUME 8.1 FL (7.4-10.4); MONOCYTES # (AUTO) 0.6 X10'3 (0-0.9); MONOCYTES % (AUTO) 10.4 % (2-12); NEUTROPHILS # (AUTO) 2.8 X10'3 (1.8-7.7); NEUTROPHILS % (AUTO) 46.5 % (42-75); PLATELET COUNT 245 X10'3 (140-440); RED BLOOD COUNT 4.04 X10'6 (4.20-5.60); RED CELL DISTRIBUTION WIDTH 13.4 % (11.5-14.5); WHITE BLOOD COUNT 6.1 X10'3 (4.5-11.0)
[2019-01-15 13:51] LABS: ALANINE AMINOTRANSFERASE 13 U/L (12-78); ALBUMIN 3.3 G/DL (3.4-5.0); ALBUMIN/GLOBULIN RATIO 0.8 (1.1-1.5); ALKALINE PHOSPHATASE 101 IU/L (46-116); ANION GAP 4 (8-16); ASPARTATE AMINO TRANSFERASE 11 U/L (10-37); BILIRUBIN,TOTAL 0.2 MG/DL (0.1-1.0); BLOOD UREA NITROGEN 16 MG/DL (7-18); BUN/CREATININE RATIO 12.6 (6.6-38.0); CALCIUM 8.9 MG/DL (8.5-10.1); CHLORIDE 101 MMOL/L (99-107); CREATININE 1.27 MG/DL (0.40-0.90); GLUCOSE 100 MG/DL (70-104); POTASSIUM 4.4 MMOL/L (3.5-5.1); SODIUM 138 MMOL/L (135-145); TOTAL PROTEIN 7.6 G/DL (6.4-8.2); eGFR 43 ML/MIN
[2019-01-15 14:00] LABS: LIPASE 96 U/L (73-393); MAGNESIUM 1.8 MG/DL (1.5-2.4)
[2019-01-15 14:44] LABS: CLARITY,URINE CLEAR (Clear); COLOR,URINE YELLOW (Yellow); GLUCOSE, URINE NEGATIVE (Neg); KETONES,URINE NEGATIVE (Neg); LEUKOCYTE ESTERASE ,URINE NEGATIVE (Neg); NITRITES, URINE NEGATIVE (Neg); OCCULT BLOOD,URINE NEGATIVE (Neg); PROTEIN,URINE NEGATIVE (Neg); UROBILINOGEN,URINE 0.2 E.U/dL (0.2-1.0)
[2019-01-15 14:47] LABS: UA COLLECTION TYPE VOIDED
[2019-01-15 14:54] VITALS: BP 112/69
== END 2019-01-15 14:56 | disposition home or self-care (01) ==
LOC: ER 11:17
DX: R60.0 Localized edema (principal); G89.29 Other chronic pain; F17.200 Nicotine dependence, unspecified, uncomplicated; Z60.2 Problems related to living alone; Z86.19 Personal history of other infectious and parasitic diseases; Z98.890 Other specified postprocedural states; Z88.2 Allergy status to sulfonamides; Z88.1 Allergy status to other antibiotic agents; Z88.8 Allergy status to other drugs, medicaments and biological substances; Z79.899 Other long term (current) drug therapy
CPT/HCPCS: 36415; 80053; 81003; 83690; 83735; 83880; 84484; 85025; 85610; 96374; 99283; J1885

== ENCOUNTER 2019-08-08 08:59 | Emergency (ER) | payer MEDICAID ==
[~2019-08-08] VITALS: Ht 165.1 cm; Wt 69.1 kg
[~2019-08-08 08:59] MED LIST changes: +OMEP40CA13 PO; -OMEP40CA37 PO; -TRAZ-219 PO; +TRAZ-256 PO
[2019-08-08 10:05] LABS: BASOPHILS % (AUTO) 0.4 % (0-1); EOSINOPHILS # (AUTO) 0.1 X10'3 (0-0.9); EOSINOPHILS % (AUTO) 2.4 % (0-6); HEMATOCRIT 42.9 % (35.0-45.0); HEMOGLOBIN 14.6 g/dl (12.0-16.0); LYMPHOCYTES # (AUTO) 1.9 X10'3 (1.1-4.8); LYMPHOCYTES % (AUTO) 31.1 % (21-51); MEAN CORPUSCULAR HEMOGLOBIN 34.1 PG (27.0-31.0); MEAN CORPUSCULAR VOLUME 100.2 FL (78-98); MEAN PLATELET VOLUME 8.1 FL (7.4-10.4); MONOCYTES # (AUTO) 0.4 X10'3 (0-0.9); NEUTROPHILS # (AUTO) 3.6 X10'3 (1.8-7.7); NEUTROPHILS % (AUTO) 59.1 % (42-75); PLATELET COUNT 232 X10'3 (140-440); RED BLOOD COUNT 4.28 X10'6 (4.20-5.60); RED CELL DISTRIBUTION WIDTH 14.2 % (11.5-14.5)
[2019-08-08] MEDS ORDERED: HYDR-3965 PO (10:09)
[2019-08-08] MEDS ORDERED: HYDROcodone/acetaminophen 5mg/325mg tablet PO ONE (10:10)
[2019-08-08 10:15] LABS: ALANINE AMINOTRANSFERASE 14 U/L (12-78); ALBUMIN 3.6 G/DL (3.4-5.0); ALBUMIN/GLOBULIN RATIO 0.9 (1.1-1.5); ALKALINE PHOSPHATASE 93 IU/L (46-116); ANION GAP 9 (8-16); ASPARTATE AMINO TRANSFERASE 15 U/L (10-37); BILIRUBIN,TOTAL 0.1 MG/DL (0.1-1.0); BLOOD UREA NITROGEN 12 MG/DL (7-18); BUN/CREATININE RATIO 9.2 (6.6-38.0); CALCIUM 9.1 MG/DL (8.5-10.1); CHLORIDE 104 MMOL/L (99-107); GLUCOSE 107 MG/DL (70-104); POTASSIUM 4.4 MMOL/L (3.5-5.1); SODIUM 140 MMOL/L (135-145); TOTAL CARBON DIOXIDE 26.8 MMOL/L (24-32); TOTAL PROTEIN 7.8 G/DL (6.4-8.2); eGFR 42 ML/MIN
[2019-08-08 10:36] VITALS: BP 147/84
== END 2019-08-08 11:04 | disposition home or self-care (01) ==
LOC: ER 09:00
DX: S22.43XA Multiple fractures of ribs, bilateral, initial encounter for closed fracture (principal); G89.29 Other chronic pain; Z98.890 Other specified postprocedural states; Z86.19 Personal history of other infectious and parasitic diseases; Z88.1 Allergy status to other antibiotic agents; Z88.8 Allergy status to other drugs, medicaments and biological substances; Z79.899 Other long term (current) drug therapy; X50.1XXA Overexertion from prolonged static or awkward postures, initial encounter; Y93.89 Activity, other specified; Y92.89 Other specified places as the place of occurrence of the external cause; Y99.9 Unspecified external cause status
CPT/HCPCS: 36415; 71101; 80053; 85025; 93005; 99284

== ENCOUNTER 2019-10-09 09:16 | Emergency (ER) | payer MEDICAID ==
[~2019-10-09] VITALS: Ht 165.1 cm; Wt 70.8 kg
[2019-10-09 09:51] VITALS: BP 136/84
== END 2019-10-09 11:09 | disposition home or self-care (01) ==
LOC: ER 09:16
DX: R07.81 Pleurodynia (principal); M25.571 Pain in right ankle and joints of right foot; G89.29 Other chronic pain; Z98.890 Other specified postprocedural states; Z60.2 Problems related to living alone; Z86.19 Personal history of other infectious and parasitic diseases; Z88.2 Allergy status to sulfonamides; Z88.1 Allergy status to other antibiotic agents; Z79.899 Other long term (current) drug therapy; W01.0XXA Fall on same level from slipping, tripping and stumbling without subsequent striking against object, initial encounter; Y93.89 Activity, other specified; Y92.89 Other specified places as the place of occurrence of the external cause; Y99.8 Other external cause status
CPT/HCPCS: 71045; 73610; 99284

== ENCOUNTER 2019-10-20 08:41 | Emergency (ER) | payer MEDICAID ==
[~2019-10-20] VITALS: Ht 162.6 cm; Wt 80.0 kg
[2019-10-20] MEDS ORDERED: ketorolac trometh. 30mg/ml inj. IM ONE (08:55)
--- NOTE | 2019-10-20 10:05 | NUR ---
AN INSENTIVE SPIROMETER WAS ORDERED FOR PT. PT STATES THAT SHE HAS ONE AT HOME FROM LAST VISIT ON 10/09/19. PT WAS REINSTRUCTED ON HOW TO USE THE INSENTIVE SPIROMETER AND HOW FREQUENTLY TO USE IT; WHILE WATCHING TV, INHALE TO RAISE THE PLUNGER AND AT EVERY COMMERCIAL TIME TRY TO GO PAST THE PREVIOUS RISE. PT STATED UNDERSTANDING. DR JAMES INFORMED THAT PT HAS A SPIROMETER AT HOME CURRENTLY
[2019-10-20 10:19] VITALS: BP 114/86
== END 2019-10-20 10:23 | disposition home or self-care (01) ==
LOC: ER 08:42
DX: S22.31XA Fracture of one rib, right side, initial encounter for closed fracture (principal); K21.9 Gastro-esophageal reflux disease without esophagitis; G89.29 Other chronic pain; Z86.73 Personal history of transient ischemic attack (TIA), and cerebral infarction without residual deficits; M81.0 Age-related osteoporosis without current pathological fracture; Z60.2 Problems related to living alone; Z88.2 Allergy status to sulfonamides; Z88.1 Allergy status to other antibiotic agents; Z88.8 Allergy status to other drugs, medicaments and biological substances; Z79.899 Other long term (current) drug therapy; W18.39XA Other fall on same level, initial encounter; Y93.89 Activity, other specified; Y92.89 Other specified places as the place of occurrence of the external cause; Y99.8 Other external cause status
CPT/HCPCS: 71101; 96372; 99284; J1885